=== PATIENT | female | born 1940 | race Caucasian/White ===

== ENCOUNTER 2016-09-07 11:05 | Day surgery (SDC) | payer MEDICARE, OTHER ==
[~2016-09-07] VITALS: Ht 157.5 cm; Wt 52.2 kg
[~2016-09-07 11:05] MED LIST: 0.9% Sodium Chloride 1,000 ML IV SCH; AMT25T PO; ASPI-628 PO; CLOP75TA3 PO; FERR-83 PO; FLUO10CA20 PO; FLUT16SP2 NS; LEVO75TA4 PO; LISI-567 PO; Lactated Ringer's 1,000 ML IV ONE; OMEP40CA36 PO; ONDA4TAB12 PO; OXYB5TAB10 PO; OXYC-302 PO; OXYC30TA77 PO; SIMV40TA5 PO; Sodium Chloride LOK Flush 10 mL Syringe IV PRN; VERA180C2 PO; fentaNYL-PF 50 mCg/mL 2 mL Inj IVPUSH PRN
[2016-09-07] MEDS ORDERED: Ketamine 10 mg/mL 20 mL Inj ONE (11:06)
[2016-09-07] MEDS ORDERED: Propofol 10,000 mCg/mL 20 mL Inj ONE (11:06)
[2016-09-07 13:15] VITALS: BP 150/69; PULSE 68; RESP 16; O2SAT 99
[2016-09-07] MEDS ORDERED: Lactated Ringer's 500 ML IV PRN (13:34)
[2016-09-07] MEDS ORDERED: Ondansetron 2 mg/mL 2 mL Inj IVPUSH PRN (13:35)
[2016-09-07] MEDS ORDERED: Labetalol 5 mg/mL 4 mL Inj IV PRN (13:35)
[2016-09-07] MEDS ORDERED: MetoCLOpramide 5 mg/mL 2 mL Inj IVPUSH PRN (13:35)
[2016-09-07] MEDS ORDERED: Dexamethasone 4 mg/mL Inj IVPUSH PRN (13:35)
[2016-09-07] MEDS ORDERED: fentaNYL-PF 50 mCg/mL 2 mL Inj IVPUSH PRN (13:35)
[2016-09-07] MEDS ORDERED: hydrALAZINE 20 mg/mL Inj IVPUSH PRN (13:35)
[2016-09-07] MEDS ORDERED: HYDROmorphone 1 mg/mL Inj IVPUSH PRN (13:35)
[2016-09-07] MEDS ORDERED: EPHEDrine Sulfate 50 mg/mL Inj IVPUSH PRN (13:35)
[2016-09-07] MEDS ORDERED: Phenylephrine 10,000 mCg/mL Inj IVPUSH PRN (13:35)
--- NOTE | 2016-09-07 13:40 | PCM.HPANE ---
Patient Data Date of Service: September 07, 2016 Surgeon Admitting Provider: Attending Provider:Luan Ingram MD Primary Care Physician:Frankie Linares DO Other Provider: Reason for Visit Abdominal Pain Of Unknown Cause Ht/WT & BMI Height (Feet): 5 Height (Inches): 2 Weight (Kilograms): 52.16 Body Mass Index 21.00 Allergies Coded Allergies: TAPE (Verified Allergy, Intermediate, welts, blisters , 07/10/14) hydromorphone (Verified Adverse Reaction, Unknown, Rash, 09/04/16) Past Anesthesia History Anesthesia History: Denies:: Abnormal Airway, Anesthesia Reactions, Difficult Intubation, Fam Anesthesia Reaction, Fam Malignant Hypertherm, Malignant Hyperthermia Diabetes History Hx Diabetes?: No MRSA 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) Medications Blood Thinner: Aspirin, Plavix Last Dose Blood Thinner: September 02, 2016 Active Scripts Oxycodone HCl/Acetaminophen (Percocet 7.5-325 mg Tablet)1 Each Tablet1-2 Each PO Q4-6H PRN For Pain #30 TABLET Ref 0 Prov:Suman Medellin MD 01/24/14 Reported Medications Ferrous Sulfate 325 Mg Gdeibo186 Mg PO DAILY 30 Days Ref 0 09/04/16 Lisinopril 20 Mg Xnudtx08 Mg PO DAILY 30 Days Ref 0 09/04/16 Levothyroxine 75 Mcg Hdebwj97 Mcg PO DAILY Ref 0 09/04/16 Simvastatin 40 Mg Ffpkix42 Mg PO HS 30 Days Ref 0 07/10/14 Ondansetron ODT 4 Mg Tab.rapdis4 Mg PO Q8 07/09/14 Verapamil ER 180 Mg Cap24h.szu146 Mg PO DAILY 30 Days Ref 0 01/19/14 Fluoxetine 10 Mg Ysppoub05 Mg PO DAILY 30 Days Ref 0 01/19/14 Clopidogrel Bisulfate (Plavix)75 Mg Nuvihq57 Mg PO DAILY 30 Days Ref 0 01/19/14 Oxybutynin Chloride 5 Mg Tablet5 Mg PO BID 30 Days Ref 0 01/19/14 Omeprazole 40 Mg Capsule.dr40 Mg PO DAILY 30 Days Ref 0 01/19/14 Fluticasone Propionate (Flonase Nasal)16 Gm Imlay.susp2 Sprays NS DAILY #16 GM Ref 0 01/19/14 Aspirin (Aspir 81)81 Mg Tablet.dr81 Mg PO DAILY Ref 0 01/19/14 Amitriptyline 25 Mg Tab25 Mg PO HS Ref 0 01/19/14 Discontinued Reported Medications Diclofenac Gel 100 Gm Gel..gram.3 % Tp Bid 07/09/14 Levothyroxine (Synthroid)112 Mcg Nlcwet499 Mcg PO DAILY 30 Days Ref 0 01/19/14 Discontinued Scripts Oxycodone ER (Oxycontin)30 Mg Tab.er.12h30 Mg PO Q12 #30 Prov:Suman Medellin MD 01/24/14 Lisinopril (Zestril)20 Mg Tfnyvz89 Mg PO DAILY #30 TAB Ref 1 Prov:Suman Medellin MD 01/24/14 History History of ENT Problems?: Yes HEENT History: Positive for:: Cataracts (S/P EXTRACTION) Dysphagia (DESCRIBES EPISODES OF TRANSFER DYSPHAGIA ) Sinus Problem (Left sinus has polyps) Denies:: Abnormal Airway Difficult Intubation Hearing Problem Denture Type: None Teeth Condition: Within Normal Limits Missing Teeth Hx of Heart Problems?: Yes Cardiovascular History: Positive for:: Hypertension Hx of Respiratory Problem?: No Respiratory History: Denies:: Use of C-PAP Machine Hx Neurologic Problems?: Yes Neurological History: Positive for:: CVA (4 YRS AGO - RESIDUAL VISUAL IMPAIRMENT) Dizziness (Did following CVA but no longer) Seizures (during hospitalization 2006, none since) Hx of GI Problems?: Yes Hx of Problems?: No Female Hx: Positive for:: Endometriosis Denies:: Currently Skin History: Positive for:: History Skin Disorders? (psoriasis) Denies:: Pressure Ulcers Hx Musculoskeletal Problems?: Yes Musculoskeletal History: Positive for:: Degenerative Joint Fibromyalgia Joint Replacement (both big toes) Musculoskeletal Trauma ( RT SHOULDER PAIN) Hx of Psycho/Social Problems?: Yes Psycho Social History: Positive for:: Hx Depression Hx Surgeries?: Yes (GASTRIC OUTLET REVISION, 2 C-SECT, HYST, CHOLY) Hx Any Other Health Problems?: Yes Other History: Positive for:: Hospitalization (pancreas problem after ERCP) Thyroid Disease (On Levothyroxine) Denies:: Cancer Endocrine Disease History Blood Transfusions: Positive for:: Blood Transfuse Reaction (broke out in rash) Blood Transfusions Hx Diabetes: No Hx Alcohol Use: NoHx Substance Use: No Smoking Status: Never Smoker Have You Smoked inLast 12 mo: No Stop/Bang Treated for Sleep Apnea?: No S-Snoring: Do You Snore Loudly: No T-Tired: feel tired, fatigued: No O-Obsered: Observed not breath: No P-Blood Pressure: treated: Yes B- Body Mass Index > 35 kg/m2: No A- Age over 50: Yes N- Neck Large Circumference: No G- Gender Male: No TIM Total Score: 2 TIM Risk Assessment: Low Risk, <3 Yes Risk Assessment Category Category 1A: Patient has history of documented sleep apnea, and HAS NOT received any narcotic, sedative or anesthesia administration during this stay. Category 1B: Patient has history of documented sleep apnea, and HAS received any narcotic , sedative or anesthesia administration during this stay Category 2: Patient has SUSPECTED Obstructive Sleep Apnea, and HAS received any narcotic , sedative or anesthesia administration during this stay. Category 3: Patient has SUSPECTED Obstructive Sleep Apnea and HAS NOT received narcotic, sedative or anesthesia administration during this stay. Category 4: Outpatient in Procedural Areas with known sleep apnea or who screen positive for High Risk via the STOP/BANG questionnaire. Exam Exam Vital Signs Vital Signs Date Time Temp Pulse Resp B/P Pulse Ox O2 Delivery O2 Flow Rate FiO2 09/07/16 13:15 36.8 68 16 150/69 99 Room Air General Appearance: Alert, Oriented X3, Cooperative, No Acute Distress HEENT/AIRWAY: MP 2 Lungs: Clear to Auscultation, Normal Air Movement Heart: Exam Unremarkable, Regular Rate/Rhythm, No Murmurs/Rubs/Gallops Plan Impression Patient chart reviewed, patient interviewed and anesthestic plan with risks, benefits, and alternatives discussed, and informed consent obtained. NPO per Anesth. Guidelines: Yes ASA Physical Status: ASA2 Mod Systemic Disease Anesthetic Plan: GA Bene/Risks/Altern/Consents: Yes HP Complete Prior to Induction: Yes Beau Ferreira MD September 07, 2016 13:40
[2016-09-07] MEDS: Lactated Ringer's 1,000 ML IV SCH ×2 (13:51→14:08)
--- NOTE | 2016-09-07 14:06 | PCM.ENDEGD ---
EGD Date of Service: September 07, 2016 Physician Luan Ingram MD Pre Procedure Diagnosis: Abdominal pain Post Procedure Dx & Findings: Gastritis Procedure Esophagogastroduodenoscopy PROCEDURE IN DETAIL: After proper sedation, Olympus video endoscope was inserted into patient's mouth and esophagus was successfully intubated. Scope introduced esophagus. Esophagus showed normal shiny whitish mucosa consistent with squamous cell component. Z line was intact at 40 cm from the incisors. Scope further advanced to the stomach. Gastric mucosa showed blunted folds reddish mucosa with edema consistent with gastritis and bilious material noted.. Cardia fundus body antrum pylorus were all visualized. Retroflexion was done. Stomach was easily inflated and deflatable using air. Scope further events to the distal duodenum. Duodenum revealed normal villous structures with normal appearing folds without any mass ulcer erosion. 5 biopsies obtained to rule out celiac disease. Impression Gastritis Recommendation Follow up in GI clinic Presedation Assessment Risks and Benefits Informed consent was obtained from the patient after all risks and benefits including but not limited to drug reaction, infection, pain, bleeding, perforation, as well as alternatives were discussed. Patient monitoring Continuous pulse oximetry, cardiac monitoring, blood pressure monitoring, IV access, and oxygen at 2L per nasal cannula. Complications There were no periprocedural complications identified. Post Procedure Plan Post Procedure Recommendations 1. Restrict activities today. 2. Resume normal activities in the morning. 3. Resume medications. 4. GERD behavioral modification: - Avoid fatty, acidic, spicy, large meals - Do not lie down after meals - Do not eat or drink anything for at least 2 1/2 hours before going to bed at night - Discontinue tobacco and alcohol - Decrease or avoid caffeine - Avoid chocolate and mints - Decrease weight - Avoid aspirin and non steroidal anti-inflammatory agents (NSAID) such as Aleve, Advil, Mobic, Naproxen, Ibuprofen, etc 5. Add proton pump inhibitor. Take 30 minutes before 1st meal of the day. 6. Patient informed of normal post procedure side effects as bloating, drowsiness, blood streaking in the stool 7. If gastric biopsy reveal H.pylori, continue with appropriate treatment 8. If small bowel biopsy reveals celiac, continue with appropriate treatment 9. Please don't hesitate to call me with any questions Luan Ingram MD September 07, 2016 14:06
[2016-09-07 14:11] VITALS: BP 153/69; PULSE 77; RESP 16; O2SAT 98
[2016-09-07 14:21] VITALS: BP 140/68; PULSE 61; RESP 16; O2SAT 100
--- NOTE | 2016-09-07 14:38 | PCM.ANEP1 ---
Post Anesthesia Phase 1 PACU Phase 1 Assessment Date of Service: September 07, 2016 Vital Signs Vital Signs Date Time Temp Pulse Resp B/P Pulse Ox O2 Delivery O2 Flow Rate FiO2 09/07/16 14:21 61 16 140/68 100 Room Air 09/07/16 14:11 77 16 153/69 98 Room Air 09/07/16 13:15 36.8 68 16 150/69 99 Room Air Anesthetic Administered: GA Level of Alertness: Awake, talking Pain: No Nausea or Vomiting: No Cardiovascular Function and Hy: Yes Oxygen Delivery: Room Air Lungs: Clear to Auscultation, Normal Air Movement Complications: No Beau Ferreira MD September 07, 2016 14:38
--- NOTE | 2016-09-09 16:44 | PATH ---
SURGICAL PATHOLOGY Attending Physician:Luan Ingram M.D. CASE STATUS: Signed Out PATIENT NAME: KRISTINE HARDEN PID: [id number] : 1940 DATE COLLECTED:09/07/2016 00:00 SPECIMEN: 1: Gastric, Biopsy 2: Duodenum, Biopsy CLINICAL HISTORY: ABD PAIN, ANEMIA, GASTRITIS 1). GASTRIC BIOPSY 2). DUODENAL BIOPSY FINAL DIAGNOSIS: 1. Gastric Biopsy: Portions of gastric antral and body-type mucosa with chronic gastritis. Negative for H. pylori organisms by H&E stain. Immunohistochemistry studies pending; results will be reported as an addendum. Negative for intestinal metaplasia, dysplasia, and malignancy. 2. Duodenal Biopsy: Duodenal mucosa with no diagnostic abnormality. Negative for active inflammation, features of sprue, dysplasia, or malignancy. ICD10: D50.9 GROSS DESCRIPTION: The specimen is received in two formalin filled containers labeled with the patient's name. 1). The specimen is sublabeled "gastric" and consists of 3 portions of tissue which aggregate to 0.3 x 0.3 x 0.2 CM. The specimen is entirely submitted in cassette 1A. 2). The specimen is sublabeled "duodenal" and consists of 3 portions of tissue which aggregate to 0.2 x 0.2 x 0.2 CM. The specimen is entirely submitted in cassette 2A. 09/08/2016 [facility] ICD-9 CODES: CPT CODES: 1: 14185, 61612 2: 25572 PROCEDURE/ADDENDA: Immunohistochemistry SPI Interpretation {Not Entered} Results-Comments 1.GASTRIC BIOPSY:The patient tissue is stained by immunohistochemical technique using monoclonal antibody to Helicobacter pylori (SP48). Positive and negative controls stain appropriately. Result: The patient tissue shows no staining. Interpretation: The gastric mucosa is negative for Helicobacter organisms by immunohistochemical stains. This test was developed and its performance characteristics determined by [facility]. It has not been cleared or approved by the [place]. Food and Drug Administration. The FDA has determined that such clearance or approval is not necessary. This test is used for clinical purposes. It should not be regarded as investigational or for research. Electronically Signed Out Divya Winslow MD Electronically Signed Out Caryn Gardiner MD [facility] [address], [place] [address] Technical component performed at [facility], [address], [place], [address]
== END 2016-09-07 23:59 | disposition home or self-care (01) ==
LOC: END 11:05
PROVIDERS: ATTEND Internal Medicine
DX: K29.50 Unspecified chronic gastritis without bleeding (principal); K21.9 Gastro-esophageal reflux disease without esophagitis; I10 Essential (primary) hypertension; G40.909 Epilepsy, unspecified, not intractable, without status epilepticus; Z79.02 Long term (current) use of antithrombotics/antiplatelets; Z79.82 Long term (current) use of aspirin; I69.398 Other sequelae of cerebral infarction; H53.9 Unspecified visual disturbance; M79.7 Fibromyalgia
CPT/HCPCS: 43239; 88305; 88342; J7120